=== PATIENT | male | born 1965 | race African-American/Black ===

== ENCOUNTER 2024-12-14 00:55 | Emergency (ER) | payer MEDICAID, SELFPAY ==
[2024-12-14 00:55] VITALS: BP 159/100; PULSE 128; RESP 20; TEMP 36.8; O2SAT 94
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
--- OUTSIDE RECORDS SUMMARY | 2024-12-14 01:13 | XMS_ITS | Clinical Summary ---
Author Organization [facility] Address [address] [place] [address] Care Team Providers Care Logistics Solution Manager Name Role Phone Leidy Lassiter MD Primary Care Provider Source Comments [facility],non-[facility] Affiliates and Associated Physician Practices is amultiple site organization consisting of ambulatory clinics and hospital sitesin [place], [place], [place] and [place]. This disclosure is being madepursuant to the Care Everywhere program and may not contain all information available regarding this patient. Last updated 18.[facility] [place] Allergies Active Allergy Reactions Criticality Noted Date Comments Ibuprofen Rash Medium 11/26/2017 Tramadol GI Discomfort 11/26/2017 Acetaminophen Rash Medium 11/26/2017 Medications * Be aware that medications may not be up to date on this document. Alwaysverify current medications with the patient. oxyCODONE-acetam inophen (PERCOCET) 10-325 MG tablet Take 1 tablet by mouth every 4 hours as needed for Pain Active gabapentin (NEURONTIN) 100 MG capsule Take 200 mg by mouth 3 times daily Active Social History Tobacco Use Types Packs/Day Years Used Date Smoking Tobacco: Every Day Smokeless Tobacco: Never Alcohol Use Standard Drinks/Week Comments No 0 (1 standard drink = 0.6 oz pur e alcohol) Sex and Gender Information Value Date Recorded Sex Assigned at Not on file Legal Sex Male 11:29 AM CDT Gender Identity Not on file Sexual Orientation Not on file Last Filed Vital Signs Vital Sign Reading Time Taken Comments Blood Pressure 150/97 11/26/2017 12:52 PM CDT Pulse 70 11/26/2017 12:52 PM CDT Temperature 36.8 C (98.2 F) 11/26/2017 12:52 PM CDT Respiratory Rate 18 11/26/2017 12:52 PM CDT Oxygen Saturation 97% 11/26/2017 12:52 PM CDT Inhaled Oxygen Concentration - - Weight 123.4 kg (272 lb) 11/26/2017 9:52 AM CDT Height 171.5 cm (5' 7.5) 11/26/2017 9:52 AM CDT Body Mass Index 41.97 11/26/2017 9:52 AM CDT Plan of Treatment Health Maintenance Due Date Last Done Comments COLOGUARD (AGES 45-75) - COL ON CA SCREENING 1963 COLON MONITORING 1963 COLONOSCOPY - COLON CA SCREENING 1963 CT COLONOGRAPHY - COLON CA SCREENING 1963 Colorectal Cancer Screening 1963 FIT - COLON CA SCREENING 1963 FLEX SIG - COLON CA SCREENING 1963 LIPID TESTING 1963 HIV SCREENING 1978 HEPATITIS C SCREENING 07/05/1981 DTAP/TDAP/TD VACCINES (1 - Tdap) 1982 PNEUMOCOCCAL VACCINE 50+ (1 of 1 - PCV) 2013 ZOSTER VACCINE (1 of 2) 2013 COVID-19 VACCINE (1 - 2023-2 5 season) 2024 DEPRESSION SCREENING 07/13/2024 INFLUENZA VACCINE (Season Ended) 2025 Respiratory Syncytial Virus (RSV) Vaccine Pt: or over 60 yrs (1 - 1-dose 75+ series) 2038 HEPATITIS B VACCINE Aged Out No longe r eligible based on patient's age to complete this topic HIB VACCINE Aged Out No longer eligi ble based on patient's age to complete this topic HPV VACCINE Aged Out No longer eligi ble based on patient's age to complete this topic MENINGOCOCCAL (Group B) VACC INE SHARED DECISION-MAKING Aged Out No longer eligibl e based on patient's age to complete this topic MENINGOCOCCAL GROUPS A/C/Y/W VACCINE Aged Out No longer eligible b ased on patient's age to complete this topic Insurance [address] [id number] [place] Care Teams Logistics Solution Manager Relationship Specialty Start Date End Date Leidy Lassiter MD [address] [place] [id number] PCP - General 06/30/19
--- OUTSIDE RECORDS SUMMARY | 2024-12-14 01:13 | XMS_ITS | Continuity of Care Document ---
Author Organization [facility] Address [address] [place] [address] Phone Care Team Providers Care [employer] And Silver[employer] Salesperson Name Role Phone Evon Parra Unavailable Unavailable Allergies, Adverse Reactions, Alerts Substance Reaction Status Criticality No Known Allergies Active No Inform ation Procedures Procedure Date OFFICE/OUTPATIENT VISIT, NEW Alcohol and/or drug screening 9 HEPATITIS A VACCINE, ADULT DOSAGE, FOR I NTRAMUSCULAR USE PROSTATE SPECIFIC ANTIGEN (PSA); TOTAL A LIPID PANEL COMPRE METAB PANEL COLLECTION OF VENOUS BLOOD BY VENIPUNCTU RE HEPATITIS A VACCINE, ADULT DOSAGE, FOR I NTRAMUSCULAR USE OFFICE OUTPT NEW 20 MINUTES Advance Directives Directive Yes / No Effective Date File Name No Information Encounters Encounter Description Practice Location Reason(s) For Visit Diagnoses Date Provider Providers Copied on Encounter OFFICE/OUTPA TIENT VISIT, [facility] [address], [place], [place], [id number] , [place] tel: [phone] Urgent Care hep a shot (chief complaint) Body mass index (BMI) 30.0-30.9, adultEncounter for immunizationEl evated BP reading w/o diagnosis of HTNEncounter for screening for other disorder 9 Johny Barnard. [address], [place], [place], [id number], [place]. tel:[phone] [facility] [address], [place], [place], [id number] , tel: [phone] Historic Immunization Location No Information 9 No Information [facility], [address], [place], [place], [id number] , [place] tel: [phone] [facility] NEOP-PROSTATE 9 No Information OFFICE OUTPT NEW 20 MINUTES [facility], [address], [place], [place], [id number] , [place] tel: [phone] [facility] ROUTINE MEDICAL EXAMVACCIN FOR SINGL DIS NOS 9 No Information Family History Family Member Type Diagnosis Age At Onset No Information Immunizations Vaccine Date Status Comments Vaqta/Havrix (HepA adult) administered So urce: New Immunization Record HEPATITIS A VACCINE, ADULT DOSAGE, FOR INTRAMUSCULAR USE administered Source: Verónica pascual Immunization Record Payers Payer name Insurance type Covered republican ID Authordahlia carney(s) Medicaid - Medical [id number] Medicaid - Medical [id number] Social History Type Description Quantity Date Captured Comments Alcohol Use Details No Caffeine Use Details No Tobacco Use Status Current non-smoker 19 Smoking Status Never smoker Non-Smoking Tobacco Use Details : No Details Available : No Details Available Sex Male Sexual Orientation Straight or heterosexual Gender Identity Male Vital Signs Date / Time: Height Weight BMI Pulse Rate Blood Pressure Temperature Respiratory Rate Body Surface Area Head Circumference Head Circ. Percentile Wt./Seun. Percentile BMI percentile Pulse Ox Inhaled Ox 1:25 PM 67.00 in 87.090 kg (192.00 lbs) 30.0 7 kg/m eter (2) 83 /min 162/105 mm[Hg] 98.50 F 18 /min 2.03 meter(2) 97 % 21 % Chief Complaint And Reason For Visit From encounter dated '03/15/2019 12:45'. hep a shot (chief complaint). 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 Feeling well today. No complaints/concerns. 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 Feeling well today. No complaints/concerns. NKDA or food allergies.BP elevated today; denies h/o HTN; reports walked here and thinks that's why elevateddenies chest pain, headache, dizziness, visual changesfeeling well today Functional Status Date Functional Assessmen t Pain Score 0/10 Instructions Date Instruction Additional Infor mation Prescribed activity/ exercise education Related to Body mass index (BMI) 30.0-30.9, adult Assessments Type Assessment Date assessment Body mass index (BMI) 30.0-30.9, adult assessment Encounter for immunization assessment Elevated BP reading w/o diagnosi s of HTN impression Hep A given today impression f/u with PCP assessment Encounter for screening for othe r disorder Mental Status Date Cognitive Assessment Orientation - Weott ed to time, place, person, situation. Patient Care Teams Name Effective Dates (start - stop) Status Members No Information
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
[2024-12-14] MEDS: KETOROLAC (*BKC) 60 MG/2 ML VIAL IM (01:23)
[2024-12-14] MEDS: SILVER SULFADIAZINE 1% CR 50 GM JAR (*BKC) 1 APPLIC TOPICAL (01:23)
[2024-12-14] MEDS: TETANUS,DIPHTHERIA,AC PERTUSSIS ADULT 0.5 ML (ADACEL) IM (01:24)
[2024-12-14 01:43] VITALS: BP 160/88; PULSE 99; RESP 20; O2SAT 94
== END 2024-12-14 01:43 | disposition home or self-care (01) ==
PROVIDERS: Emergency Provider Emergency Medicine
DX: T23.252A Burn of second degree of left palm, initial encounter (principal); T31.0 Burns involving less than 10% of body surface; X08.8XXA Exposure to other specified smoke, fire and flames, initial encounter; Z23 Encounter for immunization
CPT/HCPCS: 12052; 90471; 90715; 96372; 99283; A9270; J1885